=== PATIENT | male | born 1975 | race Caucasian/White ===

== ENCOUNTER 2024-07-19 01:55 | Outpatient (CLI) | payer MEDICAID, SELFPAY ==
[2024-07-19 11:00] LABS: Abs Immature Grans 0.05 10^3/uL (0.0-0.06); Absolute Basophil Count 0.08 10^3/uL (0.0-0.2); Absolute Eosinophil Count 0.13 10^3/uL (0.0-0.7); Absolute Lymphocyte Count 1.07 10^3/uL (1.2-3.4); Absolute Monocyte Count 0.64 10^3/uL (0.1-0.8); Absolute Neutrophil Count 6.21 10^3/uL (1.2-6.7); Eosinophils % 1.6 %; HCT 36.3 % (40.0-50.0); HGB 11.9 g/dL (13.5-17.5); Immature Grans % 0.6 %; Lymphocytes % 13.1 %; MCH 30.5 pg (27.0-33.0); MCHC 32.8 % (32.0-36.0); MCV 93 fL (80-95); MPV 8.3 fL (8.0-11.0); Monocytes % 7.8 %; Neutrophils % 75.9 %; Platelet Count 340 10^3/uL (130-400); RDW 12.4 % (11.8-14.1); RDW-SD 42.3 fL; WBC 8.18 10^3/uL (4.4-10.8)
[2024-07-19 11:24] LABS: ALT 13 U/L (16-63); AST 15 U/L (15-37); Albumin 2.9 g/dL (3.4-5.0); Alkaline Phosphatase 74 U/L (46-116); Anion Gap 1.3 mmol/L (3-11); BUN 7 mg/dL (7-18); Bilirubin, Total 0.33 mg/dL (0.2-1.0); CO2 31.7 mmol/L (21.0-32.0); CREATININE 0.8 mg/dL (0.70-1.30); Calcium 8.7 mg/dL (8.5-10.1); Chloride 99 mmol/L (98-107); Estimated GFR 109.85 (mL/min/1.73m2); FREE T4 0.82 ng/dL (0.76-1.46); Glucose 103 mg/dL (74-106); Potassium 4.7 mmol/L (3.5-5.1); Sodium 132 mmol/L (136-145); TSH 0.67 uIU/Ml (0.36-3.74); Total Protein 6.3 g/dL (6.4-8.2)
== END 2024-07-19 01:56 | disposition home or self-care (01) ==
LOC: LBO 01:55
PROVIDERS: Visit Provider Nurse Practitioner
DX: C44.42 Squamous cell carcinoma of skin of scalp and neck (principal)
CPT/HCPCS: 36415; 80053; 84439; 84443; 85025

== ENCOUNTER 2024-08-09 02:44 | Outpatient (RCR) | payer MEDICAID, SELFPAY ==
[2024-08-09 09:00] LABS: Abs Immature Grans 0.08 10^3/uL (0.0-0.06); Absolute Basophil Count 0.08 10^3/uL (0.0-0.2); Absolute Eosinophil Count 0.11 10^3/uL (0.0-0.7); Absolute Lymphocyte Count 1.29 10^3/uL (1.2-3.4); Absolute Monocyte Count 0.58 10^3/uL (0.1-0.8); Absolute Neutrophil Count 8.34 10^3/uL (1.2-6.7); Basophils % 0.8 %; HCT 36.5 % (40.0-50.0); HGB 12.4 g/dL (13.5-17.5); Immature Grans % 0.8 %; Lymphocytes % 12.3 %; MCH 30.2 pg (27.0-33.0); MCV 89 fL (80-95); MPV 9.1 fL (8.0-11.0); Monocytes % 5.5 %; Neutrophils % 79.6 %; Platelet Count 244 10^3/uL (130-400); RBC 4.11 10^6/uL (4.36-5.78); RDW 12.9 % (11.8-14.1); RDW-SD 40.8 fL; WBC 10.48 10^3/uL (4.4-10.8)
[2024-08-09] MEDS: Normal Saline Flush 10 ML SYR IVP (09:20)
[2024-08-09 09:27] LABS: ALT 10 U/L (16-63); AST 13 U/L (15-37); Albumin 3.1 g/dL (3.4-5.0); Alkaline Phosphatase 91 U/L (46-116); Anion Gap 10.4 mmol/L (3-11); BUN 5 mg/dL (7-18); Bilirubin, Total 0.44 mg/dL (0.2-1.0); CO2 26.6 mmol/L (21.0-32.0); CREATININE 0.7 mg/dL (0.70-1.30); Calcium 8.7 mg/dL (8.5-10.1); Chloride 98 mmol/L (98-107); Estimated GFR 114.37 (mL/min/1.73m2); FREE T4 0.95 ng/dL (0.76-1.46); Glucose 121 mg/dL (74-106); Sodium 135 mmol/L (136-145); TSH 1.01 uIU/Ml (0.36-3.74); Total Protein 6.8 g/dL (6.4-8.2)
== END 2024-08-09 23:59 | disposition home or self-care (01) ==
LOC: INF 02:44
PROVIDERS: Visit Provider Nurse Practitioner
DX: C44.42 Squamous cell carcinoma of skin of scalp and neck (principal)
CPT/HCPCS: 36591; 80053; 84439; 84443; 85025

== ENCOUNTER 2024-08-30 01:59 | Outpatient (RCR) | payer MEDICAID, SELFPAY ==
[2024-08-30] MEDS: Normal Saline Flush 10 ML SYR IVP (10:21)
[2024-08-30 10:22] LABS: Abs Immature Grans 0.03 10^3/uL (0.0-0.06); Absolute Basophil Count 0.07 10^3/uL (0.0-0.2); Absolute Eosinophil Count 0.36 10^3/uL (0.0-0.7); Absolute Lymphocyte Count 1.52 10^3/uL (1.2-3.4); Absolute Monocyte Count 0.58 10^3/uL (0.1-0.8); Basophils % 1.1 %; Eosinophils % 5.7 %; HCT 31.5 % (40.0-50.0); HGB 10.6 g/dL (13.5-17.5); Immature Grans % 0.5 %; Lymphocytes % 23.9 %; MCHC 33.7 % (32.0-36.0); MCV 92 fL (80-95); MPV 9.2 fL (8.0-11.0); Monocytes % 9.1 %; Neutrophils % 59.7 %; Platelet Count 300 10^3/uL (130-400); RBC 3.42 10^6/uL (4.36-5.78); RDW 15.7 % (11.8-14.1); RDW-SD 51.8 fL; WBC 6.36 10^3/uL (4.4-10.8)
[2024-08-30 10:49] LABS: ALT 13 U/L (16-63); AST 12 U/L (15-37); Albumin 3.1 g/dL (3.4-5.0); Alkaline Phosphatase 77 U/L (46-116); Anion Gap 6.5 mmol/L (3-11); BUN 4 mg/dL (7-18); Bilirubin, Total 0.35 mg/dL (0.2-1.0); CO2 28.5 mmol/L (21.0-32.0); CREATININE 0.8 mg/dL (0.70-1.30); Calcium 8.3 mg/dL (8.5-10.1); Chloride 103 mmol/L (98-107); Estimated GFR 109.85 (mL/min/1.73m2); FREE T4 1.03 ng/dL (0.76-1.46); Glucose 91 mg/dL (74-106); Potassium 4.3 mmol/L (3.5-5.1); Sodium 138 mmol/L (136-145); TSH 3.17 uIU/mL (0.36-3.74); Total Protein 6.5 g/dL (6.4-8.2)
== END 2024-09-09 23:59 | disposition home or self-care (01) ==
LOC: INF 01:59
PROVIDERS: Visit Provider Nurse Practitioner
DX: C44.42 Squamous cell carcinoma of skin of scalp and neck (principal); Z45.2 Encounter for adjustment and management of vascular access device
CPT/HCPCS: 36591; 80053; 84439; 84443; 85025

== ENCOUNTER 2024-12-06 02:13 | Outpatient (RCR) | payer MEDICAID, SELFPAY ==
[2024-11-15] MEDS: Normal Saline Flush 10 ML SYR IVP (13:04)
[2024-11-15 13:36] LABS: Abs Immature Grans 0.02 10^3/uL (0.0-0.06); Absolute Basophil Count 0.09 10^3/uL (0.0-0.2); Absolute Eosinophil Count 1.31 10^3/uL (0.0-0.7); Absolute Lymphocyte Count 1.76 10^3/uL (1.2-3.4); Absolute Monocyte Count 0.56 10^3/uL (0.1-0.8); Absolute Neutrophil Count 3.97 10^3/uL (1.2-6.7); Basophils % 1.2 %; HCT 45.9 % (40.0-50.0); Immature Grans % 0.3 %; Lymphocytes % 22.8 %; MCH 32.2 pg (27.0-33.0); MCHC 34.9 % (32.0-36.0); MCV 92 fL (80-95); MPV 9.4 fL (8.0-11.0); Monocytes % 7.3 %; Neutrophils % 51.4 %; Platelet Count 265 10^3/uL (130-400); RBC 4.97 10^6/uL (4.36-5.78); RDW 12.3 % (11.8-14.1); RDW-SD 41.6 fL; WBC 7.71 10^3/uL (4.4-10.8)
[2024-11-15 13:51] LABS: ALT 7 U/L (16-63); AST 17 U/L (15-37); Albumin 3.8 g/dL (3.4-5.0); Alkaline Phosphatase 114 U/L (46-116); Anion Gap 11.2 mmol/L (3-11); BUN 10 mg/dL (7-18); Bilirubin, Total 0.77 mg/dL (0.2-1.0); CO2 26.8 mmol/L (21.0-32.0); CREATININE 0.9 mg/dL (0.70-1.30); Calcium 8.7 mg/dL (8.5-10.1); Chloride 101 mmol/L (98-107); Estimated GFR 106.01 (mL/min/1.73m2); Glucose 62 mg/dL (74-106); Potassium 4.1 mmol/L (3.5-5.1); Sodium 139 mmol/L (136-145); Total Protein 7.5 g/dL (6.4-8.2)
[2024-11-29] MEDS: Normal Saline Flush 10 ML SYR IVP (09:24)
[2024-11-29 09:38] LABS: Abs Immature Grans 0.02 10^3/uL (0.0-0.06); Absolute Basophil Count 0.13 10^3/uL (0.0-0.2); Absolute Lymphocyte Count 1.92 10^3/uL (1.2-3.4); Absolute Monocyte Count 0.69 10^3/uL (0.1-0.8); Absolute Neutrophil Count 7.52 10^3/uL (1.2-6.7); Basophils % 1.1 %; Eosinophils % 9.7 %; HCT 49.2 % (40.0-50.0); HGB 16.6 g/dL (13.5-17.5); Immature Grans % 0.2 %; Lymphocytes % 16.9 %; MCH 31.3 pg (27.0-33.0); MCHC 33.7 % (32.0-36.0); MCV 93 fL (80-95); MPV 9.3 fL (8.0-11.0); Monocytes % 6.1 %; Platelet Count 297 10^3/uL (130-400); RDW 12.2 % (11.8-14.1); RDW-SD 42.4 fL; WBC 11.39 10^3/uL (4.4-10.8)
[2024-11-29 10:03] LABS: ALT 17 U/L (16-63); AST 16 U/L (15-37); Albumin 3.6 g/dL (3.4-5.0); Alkaline Phosphatase 102 U/L (46-116); Anion Gap 9.3 mmol/L (3-11); BUN 5 mg/dL (7-18); Bilirubin, Total 1.14 mg/dL (0.2-1.0); CO2 26.7 mmol/L (21.0-32.0); CREATININE 0.9 mg/dL (0.70-1.30); Calcium 8.2 mg/dL (8.5-10.1); Chloride 99 mmol/L (98-107); Estimated GFR 106.01 (mL/min/1.73m2); Glucose 113 mg/dL (74-106); Magnesium 1.4 mg/dL (1.8-2.4); Potassium 3.8 mmol/L (3.5-5.1); Sodium 135 mmol/L (136-145); Total Protein 7.6 g/dL (6.4-8.2)
[2024-12-06] MEDS: Normal Saline Flush 10 ML SYR IVP (11:36)
[2024-12-06 11:54] LABS: Abs Immature Grans 0.04 10^3/uL (0.0-0.06); Absolute Basophil Count 0.04 10^3/uL (0.0-0.2); Absolute Eosinophil Count 0.42 10^3/uL (0.0-0.7); Absolute Lymphocyte Count 1.32 10^3/uL (1.2-3.4); Absolute Monocyte Count 0.58 10^3/uL (0.1-0.8); Basophils % 0.5 %; Eosinophils % 5.7 %; HCT 44.8 % (40.0-50.0); HGB 15.8 g/dL (13.5-17.5); Immature Grans % 0.5 %; Lymphocytes % 17.8 %; MCH 31.7 pg (27.0-33.0); MCHC 35.3 % (32.0-36.0); MCV 90 fL (80-95); MPV 9.5 fL (8.0-11.0); Monocytes % 7.8 %; Neutrophils % 67.7 %; Platelet Count 263 10^3/uL (130-400); RBC 4.98 10^6/uL (4.36-5.78); RDW-SD 39.2 fL
[2024-12-06 12:23] LABS: ALT 20 U/L (16-63); AST 15 U/L (15-37); Albumin 3.5 g/dL (3.4-5.0); Alkaline Phosphatase 77 U/L (46-116); Anion Gap 8.8 mmol/L (3-11); BUN 5 mg/dL (7-18); CO2 28.2 mmol/L (21.0-32.0); CREATININE 0.8 mg/dL (0.70-1.30); Calcium 8.9 mg/dL (8.5-10.1); Chloride 97 mmol/L (98-107); Estimated GFR 109.85 (mL/min/1.73m2); Glucose 108 mg/dL (74-106); Potassium 3.8 mmol/L (3.5-5.1); Sodium 134 mmol/L (136-145); Total Protein 7.1 g/dL (6.4-8.2)
[2024-12-06 13:07] LABS: Magnesium 1.4 mg/dL (1.8-2.4)
== END 2024-12-10 23:59 | disposition home or self-care (01) ==
LOC: INF 02:13
PROVIDERS: Internal Medicine Hematology; Visit Provider Nurse Practitioner
DX: C44.42 Squamous cell carcinoma of skin of scalp and neck (principal)
CPT/HCPCS: 36591; 80053; 83735; 84439; 84443; 85025

== ENCOUNTER 2025-01-04 02:11 | Outpatient (RCR) | payer MEDICAID, SELFPAY ==
[2024-12-13 12:05] LABS: Abs Immature Grans 0.03 10^3/uL (0.0-0.06); Absolute Basophil Count 0.04 10^3/uL (0.0-0.2); Absolute Eosinophil Count 0.09 10^3/uL (0.0-0.7); Absolute Lymphocyte Count 0.65 10^3/uL (1.2-3.4); Absolute Monocyte Count 0.61 10^3/uL (0.1-0.8); Absolute Neutrophil Count 6.37 10^3/uL (1.2-6.7); Basophils % 0.5 %; Eosinophils % 1.2 %; HGB 14.1 g/dL (13.5-17.5); Immature Grans % 0.4 %; Lymphocytes % 8.3 %; MCH 31.5 pg (27.0-33.0); MCHC 34.4 % (32.0-36.0); MCV 92 fL (80-95); MPV 9.2 fL (8.0-11.0); Monocytes % 7.8 %; Neutrophils % 81.8 %; Platelet Count 189 10^3/uL (130-400); RBC 4.48 10^6/uL (4.36-5.78); RDW-SD 40.1 fL; WBC 7.79 10^3/uL (4.4-10.8)
[2024-12-13 12:23] LABS: ALT 22 U/L (16-63); AST 15 U/L (15-37); Albumin 3.3 g/dL (3.4-5.0); Alkaline Phosphatase 80 U/L (46-116); Anion Gap 6.3 mmol/L (3-11); BUN 6 mg/dL (7-18); Bilirubin, Total 0.55 mg/dL (0.2-1.0); CO2 27.7 mmol/L (21.0-32.0); CREATININE 0.7 mg/dL (0.70-1.30); Calcium 8.9 mg/dL (8.5-10.1); Chloride 96 mmol/L (98-107); Estimated GFR 114.37 (mL/min/1.73m2); Glucose 100 mg/dL (74-106); Magnesium 1.3 mg/dL (1.8-2.4); Potassium 4.5 mmol/L (3.5-5.1); Sodium 130 mmol/L (136-145); Total Protein 6.7 g/dL (6.4-8.2)
[2024-12-13] MEDS: Normal Saline Flush 10 ML SYR IVP (13:27)
[2024-12-20] MEDS: Normal Saline Flush 10 ML SYR IVP (10:51)
[2024-12-20 11:10] LABS: Abs Immature Grans 0.05 10^3/uL (0.0-0.06); Absolute Basophil Count 0.03 10^3/uL (0.0-0.2); Absolute Lymphocyte Count 0.39 10^3/uL (1.2-3.4); Absolute Monocyte Count 0.66 10^3/uL (0.1-0.8); Absolute Neutrophil Count 3.66 10^3/uL (1.2-6.7); Basophils % 0.6 %; HCT 37.7 % (40.0-50.0); HGB 12.7 g/dL (13.5-17.5); MCH 30.9 pg (27.0-33.0); MCHC 33.7 % (32.0-36.0); MCV 92 fL (80-95); MPV 8.9 fL (8.0-11.0); Monocytes % 13.5 %; Neutrophils % 74.9 %; Platelet Count 192 10^3/uL (130-400); RBC 4.11 10^6/uL (4.36-5.78); RDW 12.3 % (11.8-14.1); RDW-SD 40.9 fL; WBC 4.89 10^3/uL (4.4-10.8)
[2024-12-20 11:25] LABS: ALT 12 U/L (16-63); AST 9 U/L (15-37); Albumin 3.1 g/dL (3.4-5.0); Alkaline Phosphatase 70 U/L (46-116); Anion Gap 7.3 mmol/L (3-11); BUN 6 mg/dL (7-18); Bilirubin, Total 0.33 mg/dL (0.2-1.0); CO2 29.7 mmol/L (21.0-32.0); CREATININE 0.9 mg/dL (0.70-1.30); Chloride 95 mmol/L (98-107); Estimated GFR 106.01 (mL/min/1.73m2); Glucose 132 mg/dL (74-106); Magnesium 1.3 mg/dL (1.8-2.4); Sodium 132 mmol/L (136-145); Total Protein 6.9 g/dL (6.4-8.2)
[2024-12-28 12:37] LABS: Abs Immature Grans 0.01 10^3/uL (0.0-0.06); Absolute Basophil Count 0.04 10^3/uL (0.0-0.2); Absolute Eosinophil Count 0.03 10^3/uL (0.0-0.7); Absolute Lymphocyte Count 0.41 10^3/uL (1.2-3.4); Absolute Monocyte Count 0.51 10^3/uL (0.1-0.8); Absolute Neutrophil Count 4.06 10^3/uL (1.2-6.7); Basophils % 0.8 %; Eosinophils % 0.6 %; HCT 35.4 % (40.0-50.0); HGB 12.4 g/dL (13.5-17.5); Immature Grans % 0.2 %; Lymphocytes % 8.1 %; MCH 31.4 pg (27.0-33.0); MCV 90 fL (80-95); MPV 8.9 fL (8.0-11.0); Monocytes % 10.1 %; Neutrophils % 80.2 %; Platelet Count 236 10^3/uL (130-400); RBC 3.95 10^6/uL (4.36-5.78); RDW 12.3 % (11.8-14.1); RDW-SD 40.1 fL; WBC 5.06 10^3/uL (4.4-10.8)
[2024-12-28 12:51] LABS: ALT 20 U/L (16-63); AST 12 U/L (15-37); Albumin 3.3 g/dL (3.4-5.0); Alkaline Phosphatase 75 U/L (46-116); Anion Gap 5.1 mmol/L (3-11); BUN 12 mg/dL (7-18); Bilirubin, Total 0.27 mg/dL (0.2-1.0); CO2 28.9 mmol/L (21.0-32.0); CREATININE 0.8 mg/dL (0.70-1.30); Chloride 99 mmol/L (98-107); Estimated GFR 109.85 (mL/min/1.73m2); Glucose 109 mg/dL (74-106); Magnesium 1.6 mg/dL (1.8-2.4); Potassium 4.2 mmol/L (3.5-5.1); Sodium 133 mmol/L (136-145); Total Protein 6.8 g/dL (6.4-8.2)
[2024-12-28] MEDS: Normal Saline Flush 10 ML SYR IVP (13:24)
[2025-01-04] MEDS: Normal Saline Flush 10 ML SYR IVP (10:50)
[2025-01-04 11:01] LABS: Abs Immature Grans 0.03 10^3/uL (0.0-0.06); Absolute Basophil Count 0.02 10^3/uL (0.0-0.2); Absolute Eosinophil Count 0.01 10^3/uL (0.0-0.7); Absolute Lymphocyte Count 0.38 10^3/uL (1.2-3.4); Absolute Monocyte Count 0.59 10^3/uL (0.1-0.8); Basophils % 0.4 %; Eosinophils % 0.2 %; HCT 35.6 % (40.0-50.0); Immature Grans % 0.7 %; Lymphocytes % 8.4 %; MCH 31.1 pg (27.0-33.0); MCHC 33.7 % (32.0-36.0); MCV 92 fL (80-95); Neutrophils % 77.3 %; Platelet Count 245 10^3/uL (130-400); RBC 3.86 10^6/uL (4.36-5.78); RDW-SD 42.9 fL; WBC 4.53 10^3/uL (4.4-10.8)
[2025-01-04 11:15] LABS: ALT 18 U/L (16-63); AST 15 U/L (15-37); Albumin 3.4 g/dL (3.4-5.0); Alkaline Phosphatase 76 U/L (46-116); Anion Gap 5.2 mmol/L (3-11); BUN 6 mg/dL (7-18); Bilirubin, Total 0.38 mg/dL (0.2-1.0); CO2 28.8 mmol/L (21.0-32.0); CREATININE 0.7 mg/dL (0.70-1.30); Calcium 9.2 mg/dL (8.5-10.1); Chloride 99 mmol/L (98-107); Estimated GFR 114.37 (mL/min/1.73m2); Glucose 106 mg/dL (74-106); Magnesium 1.4 mg/dL (1.8-2.4); Potassium 4.2 mmol/L (3.5-5.1); Sodium 133 mmol/L (136-145); Total Protein 7.1 g/dL (6.4-8.2)
== END 2025-01-07 23:59 | disposition home or self-care (01) ==
LOC: INF 02:11
PROVIDERS: Internal Medicine Hematology; Visit Provider Nurse Practitioner
DX: C44.42 Squamous cell carcinoma of skin of scalp and neck (principal)
CPT/HCPCS: 36591; 80053; 83735; 85025

== ENCOUNTER 2025-02-07 01:35 | Outpatient (RCR) | payer MEDICAID, SELFPAY ==
[2025-01-10] MEDS: Normal Saline Flush 10 ML SYR IVP (14:08)
[2025-01-10 14:17] LABS: Abs Immature Grans 0.03 10^3/uL (0.0-0.06); Absolute Basophil Count 0.02 10^3/uL (0.0-0.2); Absolute Eosinophil Count 0.02 10^3/uL (0.0-0.7); Absolute Neutrophil Count 4.98 10^3/uL (1.2-6.7); Basophils % 0.3 %; Eosinophils % 0.3 %; HCT 34.5 % (40.0-50.0); HGB 11.9 g/dL (13.5-17.5); Immature Grans % 0.5 %; MCH 31.3 pg (27.0-33.0); MCHC 34.5 % (32.0-36.0); MCV 91 fL (80-95); MPV 8.9 fL (8.0-11.0); Monocytes % 11.2 %; Neutrophils % 79.7 %; Platelet Count 209 10^3/uL (130-400); RDW 13.1 % (11.8-14.1); RDW-SD 42.2 fL; WBC 6.25 10^3/uL (4.4-10.8)
[2025-01-10 14:32] LABS: ALT 30 U/L (16-63); AST 17 U/L (15-37); Albumin 3.5 g/dL (3.4-5.0); Alkaline Phosphatase 83 U/L (46-116); Anion Gap 5.5 mmol/L (3-11); BUN 15 mg/dL (7-18); Bilirubin, Total 0.29 mg/dL (0.2-1.0); CO2 30.5 mmol/L (21.0-32.0); CREATININE 0.9 mg/dL (0.70-1.30); Calcium 9.1 mg/dL (8.5-10.1); Chloride 100 mmol/L (98-107); Estimated GFR 106.01 (mL/min/1.73m2); Glucose 111 mg/dL (74-106); Magnesium 1.5 mg/dL (1.8-2.4); Potassium 3.9 mmol/L (3.5-5.1); Sodium 136 mmol/L (136-145); Total Protein 6.8 g/dL (6.4-8.2)
[2025-01-18 10:16] LABS: Abs Immature Grans 0.01 10^3/uL (0.0-0.06); Absolute Basophil Count 0.03 10^3/uL (0.0-0.2); Absolute Eosinophil Count 0.06 10^3/uL (0.0-0.7); Absolute Lymphocyte Count 0.32 10^3/uL (1.2-3.4); Absolute Monocyte Count 0.48 10^3/uL (0.1-0.8); Absolute Neutrophil Count 3.04 10^3/uL (1.2-6.7); Basophils % 0.8 %; Eosinophils % 1.5 %; HCT 32.2 % (40.0-50.0); Immature Grans % 0.3 %; Lymphocytes % 8.1 %; MCH 31.5 pg (27.0-33.0); MCHC 34.2 % (32.0-36.0); MCV 92 fL (80-95); MPV 9.1 fL (8.0-11.0); Monocytes % 12.2 %; Neutrophils % 77.1 %; Platelet Count 153 10^3/uL (130-400); RBC 3.49 10^6/uL (4.36-5.78); RDW 14.2 % (11.8-14.1); RDW-SD 46.5 fL; WBC 3.94 10^3/uL (4.4-10.8)
[2025-01-18 10:44] LABS: ALT 13 U/L (16-63); AST 9 U/L (15-37); Albumin 3.4 g/dL (3.4-5.0); Alkaline Phosphatase 78 U/L (46-116); Anion Gap 11.6 mmol/L (3-11); BUN 8 mg/dL (7-18); Bilirubin, Total 0.3 mg/dL (0.2-1.0); CO2 24.4 mmol/L (21.0-32.0); CREATININE 0.7 mg/dL (0.70-1.30); Calcium 9.1 mg/dL (8.5-10.1); Chloride 99 mmol/L (98-107); Estimated GFR 113.66 (mL/min/1.73m2); Glucose 94 mg/dL (74-106); Magnesium 1.2 mg/dL; Potassium 3.7 mmol/L (3.5-5.1); Sodium 135 mmol/L (136-145); Total Protein 6.9 g/dL (6.4-8.2)
[2025-01-18] MEDS: Normal Saline Flush 10 ML SYR IVP (11:52)
[2025-02-07] MEDS: Normal Saline Flush 10 ML SYR IVP (13:24)
[2025-02-07 13:39] LABS: Abs Immature Grans 0.02 10^3/uL (0.0-0.06); Absolute Basophil Count 0.04 10^3/uL (0.0-0.2); Absolute Lymphocyte Count 0.25 10^3/uL (1.2-3.4); Absolute Monocyte Count 0.77 10^3/uL (0.1-0.8); Absolute Neutrophil Count 5.29 10^3/uL (1.2-6.7); Basophils % 0.6 %; Eosinophils % 1.5 %; HCT 29.6 % (40.0-50.0); HGB 10.1 g/dL (13.5-17.5); Immature Grans % 0.3 %; Lymphocytes % 3.9 %; MCH 33.3 pg (27.0-33.0); MCHC 34.1 % (32.0-36.0); MCV 98 fL (80-95); Monocytes % 11.9 %; Neutrophils % 81.8 %; Platelet Count 347 10^3/uL (130-400); RBC 3.03 10^6/uL (4.36-5.78); RDW 16.5 % (11.8-14.1); RDW-SD 58.6 fL; WBC 6.47 10^3/uL (4.4-10.8)
[2025-02-07 13:59] LABS: ALT 13 U/L (16-63); AST 9 U/L (15-37); Albumin 3.3 g/dL (3.4-5.0); Alkaline Phosphatase 80 U/L (46-116); Anion Gap 10.7 mmol/L (3-11); BUN 7 mg/dL (7-18); Bilirubin, Total 0.6 mg/dL (0.2-1.0); CO2 29.3 mmol/L (21.0-32.0); CREATININE 0.8 mg/dL (0.70-1.30); Calcium 9.3 mg/dL (8.5-10.1); Chloride 95 mmol/L (98-107); Estimated GFR 109.17 (mL/min/1.73m2); Glucose 109 mg/dL (74-106); Magnesium 1.5 mg/dL; Potassium 3.7 mmol/L (3.5-5.1); Sodium 135 mmol/L (136-145); Total Protein 6.9 g/dL (6.4-8.2)
== END 2025-02-07 23:59 | disposition home or self-care (01) ==
LOC: INF 01:35
PROVIDERS: Internal Medicine Hematology; Visit Provider Nurse Practitioner
DX: C44.42 Squamous cell carcinoma of skin of scalp and neck (principal)
CPT/HCPCS: 36591; 80053; 83735; 85025

== ENCOUNTER 2025-03-28 03:01 | Outpatient (RCR) | payer MEDICAID, SELFPAY ==
[2025-03-14] MEDS: Normal Saline Flush 10 ML SYR IVP (09:49)
[2025-03-14 10:12] LABS: Abs Immature Grans 0.07 10^3/uL (0.0-0.06); Absolute Basophil Count 0.06 10^3/uL (0.0-0.2); Absolute Eosinophil Count 0.63 10^3/uL (0.0-0.7); Absolute Lymphocyte Count 0.75 10^3/uL (1.2-3.4); Basophils % 0.5 %; Eosinophils % 5.2 %; HCT 39.2 % (40.0-50.0); HGB 13.5 g/dL (13.5-17.5); Immature Grans % 0.6 %; Lymphocytes % 6.2 %; MCH 35.2 pg (27.0-33.0); MCHC 34.4 % (32.0-36.0); MCV 102 fL (80-95); MPV 8.8 fL (8.0-11.0); Monocytes % 6.6 %; Neutrophils % 80.9 %; Platelet Count 313 10^3/uL (130-400); RBC 3.83 10^6/uL (4.36-5.78); RDW 12.8 % (11.8-14.1); RDW-SD 48.6 fL; WBC 12.13 10^3/uL (4.4-10.8)
[2025-03-14 10:14] LABS: Absolute Neutrophil Count 9.81 10^3/uL (1.2-6.7)
[2025-03-14 10:33] LABS: ALT 10 U/L (16-63); AST 11 U/L (15-37); Albumin 3.8 g/dL (3.4-5.0); Alkaline Phosphatase 96 U/L (46-116); Anion Gap 10.4 mmol/L (3-11); BUN 8 mg/dL (7-18); Bilirubin, Total 0.5 mg/dL (0.2-1.0); CO2 27.6 mmol/L (21.0-32.0); CREATININE 0.7 mg/dL (0.70-1.30); Calcium 9.6 mg/dL (8.5-10.1); Chloride 98 mmol/L (98-107); Estimated GFR 113.66 (mL/min/1.73m2); Glucose 99 mg/dL (74-106); Magnesium 1.1 mg/dL (1.8-2.4); Potassium 3.9 mmol/L (3.5-5.1); Sodium 136 mmol/L (136-145); Total Protein 7.3 g/dL (6.4-8.2)
== END 2025-04-09 23:59 | disposition home or self-care (01) ==
LOC: INF 03:01
PROVIDERS: Internal Medicine Hematology; Visit Provider Nurse Practitioner
DX: C44.42 Squamous cell carcinoma of skin of scalp and neck (principal); Z45.2 Encounter for adjustment and management of vascular access device
CPT/HCPCS: 36591; 80053; 83735; 85025

== ENCOUNTER 2025-05-02 12:00 | Outpatient (RCR) | payer MEDICAID, SELFPAY ==
[2025-04-18 10:31] LABS: Abs Immature Grans 0.03 10^3/uL (0.0-0.06); Absolute Basophil Count 0.06 10^3/uL (0.0-0.2); Absolute Eosinophil Count 0.32 10^3/uL (0.0-0.7); Absolute Lymphocyte Count 0.63 10^3/uL (1.2-3.4); Absolute Monocyte Count 0.59 10^3/uL (0.1-0.8); Absolute Neutrophil Count 6.86 10^3/uL (1.2-6.7); Basophils % 0.7 %; Eosinophils % 3.8 %; HCT 41.1 % (40.0-50.0); HGB 14.4 g/dL (13.5-17.5); Immature Grans % 0.4 %; Lymphocytes % 7.4 %; MCH 33.7 pg (27.0-33.0); MCV 96 fL (80-95); MPV 8.5 fL (8.0-11.0); Monocytes % 6.9 %; Neutrophils % 80.8 %; Platelet Count 275 10^3/uL (130-400); RBC 4.27 10^6/uL (4.36-5.78); RDW 11.8 % (11.8-14.1); WBC 8.49 10^3/uL (4.4-10.8)
[2025-04-18] MEDS: Normal Saline Flush 10 ML SYR IVP (10:42)
[2025-04-18 10:49] LABS: ALT 8 U/L (16-63); AST 11 U/L (15-37); Albumin 3.7 g/dL (3.4-5.0); Alkaline Phosphatase 105 U/L (46-116); Anion Gap 7.9 mmol/L (3-11); BUN 8 mg/dL (7-18); CO2 28.1 mmol/L (21.0-32.0); CREATININE 0.6 mg/dL (0.70-1.30); Calcium 9.2 mg/dL (8.5-10.1); Chloride 96 mmol/L (98-107); Estimated GFR 119.07 (mL/min/1.73m2); Glucose 90 mg/dL (74-106); Magnesium 1.2 mg/dL (1.8-2.4); Sodium 132 mmol/L (136-145); Total Protein 7.2 g/dL (6.4-8.2)
[2025-05-02] MEDS: Normal Saline Flush 10 ML SYR IVP (12:46)
[2025-05-02 13:02] LABS: Abs Immature Grans 0.07 10^3/uL (0.0-0.06); Absolute Basophil Count 0.06 10^3/uL (0.0-0.2); Absolute Lymphocyte Count 0.83 10^3/uL (1.2-3.4); Absolute Neutrophil Count 10.23 10^3/uL (1.2-6.7); Basophils % 0.5 %; Eosinophils % 1.6 %; HCT 39.9 % (40.0-50.0); HGB 13.8 g/dL (13.5-17.5); Immature Grans % 0.6 %; Lymphocytes % 6.8 %; MCHC 34.6 % (32.0-36.0); MCV 96 fL (80-95); MPV 8.6 fL (8.0-11.0); Monocytes % 6.6 %; Neutrophils % 83.9 %; Platelet Count 263 10^3/uL (130-400); RBC 4.18 10^6/uL (4.36-5.78); RDW 11.5 % (11.8-14.1); RDW-SD 39.9 fL; WBC 12.19 10^3/uL (4.4-10.8)
[2025-05-02 13:22] LABS: ALT 11 U/L (16-63); AST 10 U/L (15-37); Albumin 3.6 g/dL (3.4-5.0); Alkaline Phosphatase 96 U/L (46-116); Anion Gap 10.6 mmol/L (3-11); BUN 7 mg/dL (7-18); Bilirubin, Total 0.8 mg/dL (0.2-1.0); CO2 27.4 mmol/L (21.0-32.0); CREATININE 0.6 mg/dL (0.70-1.30); Chloride 94 mmol/L (98-107); Estimated GFR 119.07 (mL/min/1.73m2); Glucose 107 mg/dL (74-106); Magnesium 1.3 mg/dL (1.8-2.4); Potassium 3.9 mmol/L (3.5-5.1); Sodium 132 mmol/L (136-145); Total Protein 6.9 g/dL (6.4-8.2)
== END 2025-05-09 23:59 | disposition home or self-care (01) ==
LOC: INF 12:00
PROVIDERS: Internal Medicine Hematology; Visit Provider Nurse Practitioner
DX: C44.42 Squamous cell carcinoma of skin of scalp and neck (principal); Z45.2 Encounter for adjustment and management of vascular access device
CPT/HCPCS: 36591; 80053; 83735; 85025

== ENCOUNTER 2025-05-23 11:32 | Outpatient (RCR) | payer MEDICAID, SELFPAY ==
[2025-05-23] MEDS: Normal Saline Flush 10 ML SYR IVP (11:41)
[2025-05-23 11:51] LABS: Abs Immature Grans 0.03 10^3/uL (0.0-0.06); HCT 40.8 % (40.0-50.0); HGB 14.1 g/dL (13.5-17.5); Immature Grans % 0.4 %; MCH 32.5 pg (27.0-33.0); MCHC 34.6 % (32.0-36.0); MCV 94 fL (80-95); MPV 8.9 fL (8.0-11.0); Platelet Count 301 10^3/uL (130-400); RBC 4.34 10^6/uL (4.36-5.78); RDW 11.8 % (11.8-14.1); RDW-SD 40.8 fL; WBC 8.55 10^3/uL (4.4-10.8)
[2025-05-23 12:28] LABS: ALT 11 U/L (16-63); AST 14 U/L (15-37); Albumin 3.8 g/dL (3.4-5.0); Alkaline Phosphatase 88 U/L (46-116); Anion Gap 11.2 mmol/L (3-11); BUN 9 mg/dL (7-18); Bilirubin, Total 0.8 mg/dL (0.2-1.0); CO2 25.8 mmol/L (21.0-32.0); Calcium 9.3 mg/dL (8.5-10.1); Chloride 96 mmol/L (98-107); Estimated GFR 113.66 (mL/min/1.73m2); Glucose 113 mg/dL (74-106); Magnesium 1.6 mg/dL (1.8-2.4); Potassium 3.7 mmol/L (3.5-5.1); Sodium 133 mmol/L (136-145); Total Protein 7.4 g/dL (6.4-8.2)
== END 2025-06-09 23:59 | disposition home or self-care (01) ==
LOC: INF 11:32
PROVIDERS: Internal Medicine Hematology; Visit Provider Nurse Practitioner
DX: C44.42 Squamous cell carcinoma of skin of scalp and neck (principal); Z45.2 Encounter for adjustment and management of vascular access device
CPT/HCPCS: 36591; 80053; 83735; 85025

== ENCOUNTER 2025-07-04 14:00 | Outpatient (RCR) | payer MEDICAID, SELFPAY ==
[2025-06-13] MEDS: Normal Saline Flush 10 ML SYR IVP (13:39)
[2025-06-13 13:56] LABS: Abs Immature Grans 0.04 10^3/uL (0.0-0.06); HCT 40.8 % (40.0-50.0); HGB 14.1 g/dL (13.5-17.5); Immature Grans % 0.4 %; MCH 32.1 pg (27.0-33.0); MCHC 34.6 % (32.0-36.0); MCV 93 fL (80-95); MPV 8.9 fL (8.0-11.0); Platelet Count 348 10^3/uL (130-400); RBC 4.39 10^6/uL (4.36-5.78); RDW 11.9 % (11.8-14.1); RDW-SD 41.0 fL; WBC 9.60 10^3/uL (4.4-10.8)
[2025-06-13 14:26] LABS: ALT 13 U/L (16-63); AST 12 U/L (15-37); Albumin 3.8 g/dL (3.4-5.0); Alkaline Phosphatase 86 U/L (46-116); Anion Gap 6.1 mmol/L (3-11); BUN 9 mg/dL (7-18); Bilirubin, Total 0.7 mg/dL (0.2-1.0); CO2 29.9 mmol/L (21.0-32.0); Calcium 9.4 mg/dL (8.5-10.1); Chloride 98 mmol/L (98-107); Estimated GFR 113.66 (mL/min/1.73m2); Glucose 116 mg/dL (74-106); Magnesium 1.4 mg/dL (1.8-2.4); Potassium 3.9 mmol/L (3.5-5.1); Sodium 134 mmol/L (136-145); Total Protein 7.2 g/dL (6.4-8.2)
[2025-07-04 14:53] LABS: Abs Immature Grans 0.04 10^3/uL (0.0-0.06); HCT 39.9 % (40.0-50.0); HGB 13.5 g/dL (13.5-17.5); Immature Grans % 0.4 %; MCH 30.9 pg (27.0-33.0); MCHC 33.8 % (32.0-36.0); MCV 91 fL (80-95); MPV 9.2 fL (8.0-11.0); Platelet Count 296 10^3/uL (130-400); RBC 4.37 10^6/uL (4.36-5.78); RDW 11.6 % (11.8-14.1); RDW-SD 39.1 fL; WBC 8.94 10^3/uL (4.4-10.8)
[2025-07-04] MEDS: Normal Saline Flush 10 ML SYR IVP (14:56)
[2025-07-04 15:15] LABS: ALT 11 U/L (16-63); AST 12 U/L (15-37); Albumin 3.9 g/dL (3.4-5.0); Alkaline Phosphatase 64 U/L (46-116); Anion Gap 10.4 mmol/L (3-11); BUN 11 mg/dL (7-18); Bilirubin, Total 0.5 mg/dL (0.2-1.0); CO2 27.6 mmol/L (21.0-32.0); Calcium 9.4 mg/dL (8.5-10.1); Chloride 99 mmol/L (98-107); Estimated GFR 109.17 (mL/min/1.73m2); Glucose 71 mg/dL (74-106); Magnesium 1.6 mg/dL (1.8-2.4); Potassium 3.9 mmol/L (3.5-5.1); Sodium 137 mmol/L (136-145); Total Protein 7.1 g/dL (6.4-8.2)
== END 2025-07-10 23:59 | disposition home or self-care (01) ==
LOC: INF 14:00
PROVIDERS: Internal Medicine Hematology; Visit Provider Nurse Practitioner
DX: Z45.2 Encounter for adjustment and management of vascular access device (principal); C44.42 Squamous cell carcinoma of skin of scalp and neck
CPT/HCPCS: 36591; 80053; 83735; 85025

== ENCOUNTER 2025-08-01 13:30 | Outpatient (RCR) | payer MEDICAID, SELFPAY ==
[2025-08-01 14:28] LABS: Abs Immature Grans 0.09 10^3/uL (0.0-0.06); HCT 40.2 % (40.0-50.0); HGB 13.6 g/dL (13.5-17.5); Immature Grans % 0.8 %; MCH 30.2 pg (27.0-33.0); MCHC 33.8 % (32.0-36.0); MCV 89 fL (80-95); MPV 8.4 fL (8.0-11.0); Platelet Count 357 10^3/uL (130-400); RBC 4.50 10^6/uL (4.36-5.78); RDW 12.4 % (11.8-14.1); RDW-SD 40.0 fL; WBC 11.69 10^3/uL (4.4-10.8)
[2025-08-01 14:51] LABS: ALT 9 U/L (16-63); AST 8 U/L (15-37); Albumin 3.4 g/dL (3.4-5.0); Alkaline Phosphatase 81 U/L (46-116); Anion Gap 8.3 mmol/L (3-11); BUN 6 mg/dL (7-18); Bilirubin, Total 0.3 mg/dL (0.2-1.0); CO2 26.7 mmol/L (21.0-32.0); Calcium 9.0 mg/dL (8.5-10.1); Chloride 97 mmol/L (98-107); Glucose 101 mg/dL (74-106); Magnesium 1.4 mg/dL (1.8-2.4); Potassium 3.7 mmol/L (3.5-5.1); Sodium 132 mmol/L (136-145); Total Protein 7.2 g/dL (6.4-8.2)
[2025-08-01] MEDS: Normal Saline Flush 10 ML SYR IVP (15:11)
== END 2025-08-09 23:59 | disposition home or self-care (01) ==
LOC: INF 13:30
PROVIDERS: Internal Medicine Hematology; Visit Provider Nurse Practitioner
DX: C44.42 Squamous cell carcinoma of skin of scalp and neck (principal); Z45.2 Encounter for adjustment and management of vascular access device
CPT/HCPCS: 36591; 80053; 83735; 85025

== ENCOUNTER 2025-08-29 03:24 | Outpatient (RCR) | payer MEDICAID, SELFPAY ==
[2025-08-15] MEDS: Normal Saline Flush 10 ML SYR IVP (11:28)
[2025-08-15 11:35] LABS: Abs Immature Grans 0.04 10^3/uL (0.0-0.06); HCT 40.9 % (40.0-50.0); HGB 13.9 g/dL (13.5-17.5); Immature Grans % 0.4 %; MCH 29.8 pg (27.0-33.0); MCHC 34.0 % (32.0-36.0); MCV 88 fL (80-95); MPV 8.3 fL (8.0-11.0); Platelet Count 427 10^3/uL (130-400); RBC 4.67 10^6/uL (4.36-5.78); RDW 12.1 % (11.8-14.1); RDW-SD 38.8 fL; WBC 10.58 10^3/uL (4.4-10.8)
[2025-08-15 11:55] LABS: ALT 8 U/L (16-63); AST 8 U/L (15-37); Albumin 3.3 g/dL (3.4-5.0); Alkaline Phosphatase 91 U/L (46-116); Anion Gap 9.5 mmol/L (3-11); BUN 6 mg/dL (7-18); Bilirubin, Total 0.3 mg/dL (0.2-1.0); CO2 27.5 mmol/L (21.0-32.0); Calcium 9.1 mg/dL (8.5-10.1); Chloride 95 mmol/L (98-107); Glucose 113 mg/dL (74-106); Magnesium 1.5 mg/dL (1.8-2.4); Potassium 3.6 mmol/L (3.5-5.1); Sodium 132 mmol/L (136-145); Total Protein 7.4 g/dL (6.4-8.2)
[2025-08-22] MEDS: Normal Saline Flush 10 ML SYR IVP (09:38)
[2025-08-22 10:07] LABS: Abs Immature Grans 0.06 10^3/uL (0.0-0.06); HCT 42.5 % (40.0-50.0); HGB 14.4 g/dL (13.5-17.5); Immature Grans % 0.5 %; MCH 30.0 pg (27.0-33.0); MCHC 33.9 % (32.0-36.0); MCV 89 fL (80-95); MPV 8.8 fL (8.0-11.0); Platelet Count 447 10^3/uL (130-400); RBC 4.80 10^6/uL (4.36-5.78); RDW 12.2 % (11.8-14.1); RDW-SD 40.0 fL; WBC 11.98 10^3/uL (4.4-10.8)
[2025-08-22 10:12] LABS: ALT 9 U/L (16-63); AST 8 U/L (15-37); Albumin 3.3 g/dL (3.4-5.0); Alkaline Phosphatase 90 U/L (46-116); Anion Gap 14.1 mmol/L (3-11); BUN 7 mg/dL (7-18); Bilirubin, Total 0.8 mg/dL (0.2-1.0); CO2 25.9 mmol/L (21.0-32.0); Calcium 9.2 mg/dL (8.5-10.1); Chloride 95 mmol/L (98-107); Glucose 119 mg/dL (74-106); Magnesium 1.4 mg/dL (1.8-2.4); Potassium 3.5 mmol/L (3.5-5.1); Sodium 135 mmol/L (136-145); Total Protein 7.4 g/dL (6.4-8.2)
[2025-08-29] MEDS: Normal Saline Flush 10 ML SYR IVP (11:40)
[2025-08-29 11:47] LABS: Abs Immature Grans 0.05 10^3/uL (0.0-0.06); HCT 37.6 % (40.0-50.0); HGB 12.8 g/dL (13.5-17.5); Immature Grans % 0.4 %; MCH 29.0 pg (27.0-33.0); MCHC 34.0 % (32.0-36.0); MCV 85 fL (80-95); MPV 8.7 fL (8.0-11.0); Platelet Count 407 10^3/uL (130-400); RBC 4.41 10^6/uL (4.36-5.78); RDW 11.9 % (11.8-14.1); RDW-SD 37.1 fL; WBC 11.20 10^3/uL (4.4-10.8)
[2025-08-29 12:11] LABS: ALT 6 U/L (16-63); AST 10 U/L (15-37); Albumin 2.9 g/dL (3.4-5.0); Alkaline Phosphatase 73 U/L (46-116); Anion Gap 10.3 mmol/L (3-11); BUN 6 mg/dL (7-18); Bilirubin, Total 0.4 mg/dL (0.2-1.0); CO2 28.7 mmol/L (21.0-32.0); Calcium 9.0 mg/dL (8.5-10.1); Chloride 93 mmol/L (98-107); Glucose 119 mg/dL (74-106); Magnesium 1.4 mg/dL (1.8-2.4); Potassium 3.0 mmol/L (3.5-5.1); Sodium 132 mmol/L (136-145); Total Protein 7.1 g/dL (6.4-8.2)
== END 2025-09-09 23:59 | disposition home or self-care (01) ==
LOC: INF 03:24
PROVIDERS: Nurse Practitioner; Visit Provider Internal Medicine Hematology
DX: C44.42 Squamous cell carcinoma of skin of scalp and neck (principal); Z45.2 Encounter for adjustment and management of vascular access device
CPT/HCPCS: 36591; 80053; 83735; 85025

== ENCOUNTER 2025-09-12 13:34 | Emergency (ER) | payer MEDICAID, SELFPAY ==
--- NOTE | 2025-09-12 13:30 | RT.EKG_ITS ---
APPROVED REPORT Exam: Resting ECG Reason for Exam: AFIB Patient Location: E HR:111 bpm ECG Measurements Heart Rate 111 AXIS ME 171 P 75 QRSd 75 QRS -1 QT 315 T 69 QTc 429 Conclusion Sinus tachycardia...rate> 99 Right atrial enlargement...P>0.25mV 2 lds or<-0.24mV aVR/aVL Consider anteroseptal infarct...Q >30mS, dimin R, V1-V2 No Occlusion IA
[2025-09-12 13:35] VITALS: BP 169/96; PULSE 110; RESP 20; TEMP 36.6; O2SAT 95
[2025-09-12] MEDS: Normal Saline 1,000 ML 1000 ML IV (14:29)
--- NOTE | 2025-09-12 14:36 | ED.GENADUL_ITS ---
Discharge Plan Disposition Patient Disposition: Home Discharge Details Clinical Impression: Hypomagnesemia, Tachycardia Primary Care Provider: Unknown,Unknown ED Provider: Cynthia Brown Discharge Instructions Instructions: Sinus Tachycardia (DC), Hypomagnesemia Additional Instructions: Increase the magnesium you are taking to 4 drops a day and have your magnesium rechecked next week Your heart rate was elevated on arrival, you might benefit from an outpatient Holter monitor or Zio patch, please work on establishing with a primary care doctor Your thyroid is also slightly elevated, this will need follow-up Please be reevaluated should you develop shortness of breath, fever, or with any new or worsening complaints Stand Alone Forms: Portal Information Discharge Data Discharge Date/Time-TO BE ENTERED AT DEPARTURE: 09/12/25 17:03 HPI General Date/Time Provider Initiated Documentation: 09/12/25 13:40 . HPI Narrative: This 50-year-old male presents with report of possible atrial fibrillation sent in from [facility]. It sounds like he was presenting to [facility] for immunotherapy secondary to recurrence of his cancer. 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 On arrival there there was concern that patient reportedly was having an irregularly regular rhythm and was sent here for fu rther assessment. Patient states he otherwise feels quite well. He denies any chest pain, shortness of breath, or palpitations. Denies any history of atrial fibrillation. He does not currently have a primary care doctor scheduled for a PEG tube placement at [facility] in the next 2 weeks as he has had intermittent difficulty swallowing secondary to the radiation he received. He denies any complaints at this time otherwise feels quite well per patient. General Stated Complaint: Palpitatns MEGAN: 2 Exam Narrative Exam Narrative: alert and oriented 50 you male, in nad, sinus tachycardia, no murmur, no respiratory distress, ambulatory with steady gait Course Vital Signs Vital signs: Vital Signs Temperature 36.6 C 09/12/25 13:35 Pulse 110 H 09/12/25 13:35 Respiratory Rate 20 09/12/25 13:35 Blood Pressure 169/96 H 09/12/25 13:35 Pulse Oximetry 95 09/12/25 13:35 Temperature 36.6 C 09/12/25 13:35 Temperature Source Oral 09/12/25 13:35 Pulse 110 H 09/12/25 13:35 Respiratory Rate 20 09/12/25 13:35 Blood Pressure 169/96 H 09/12/25 13:35 Pulse Oximetry 95 09/12/25 13:35 Oxygen Delivery Method Room Air 09/12/25 13:35 Oxygen Flow Rate 0 09/12/25 13:35 Pain Level 0 09/12/25 13:35 Medical Decision Making results: mag 1.4, tsh 4.27, ft4wnl, remainder of labs wnl. ekg sinus tachycardia,. see attending's documentation , ddimer assessment and plan: pt with sinus tachycardia without evidence of dysrhythmia throughout brief observation In the emergency department. Patient is fully alert and oriented, his EKG shows sinus tachycardia which is why ordered D-dimer and electrolytes. Magnesium was found to be 1.4, QTc within normal limits. Patient adamantly declines repeat magnesium and is requesting to leave as he has a long-term home. I did recommend continued observation. Patient is swelling along the center of the lower ribs without overlying laceration. He has ecchymosis of the left with no instability or tenderness to the mid face. No septal hematoma, injury C-spine tenderness step-offs patient is the right arm is preserved but feels different compared to the left arm, largely over the area of the upper arm. But this does worsen her dizziness. This is a 73-year-old female patient presenting for evaluation of a face/head injury. Differential clues but is not limited to intracranial hemorrhage, skull fracture, facial bone fracture. Patient's new numbness/sensory change of the right upper extremity was increased my concern for nerve impingement, spine fracture, and certainly consider intracranial abnormality including mass effect. I considered medical etiologies of her dizziness including vasovagal, orthostasis, arrhythmia, metabolic electrolyte derangement, anemia. She has no chest pain to suggest ACS. pt encouraged to establish with pcp in [place] (offered local pcp however he resides in this location). he will need follow-up on TSH and holter monitor/zio patch. po magnesium was supplemented in the ED and pt will increase oral magnesium dosing at home and have magnesium rechecked by oncologist next week. We will obtain a CT of the head, neck, and facial bones. I will obtain an EKG and labs to include CBC, CMP, magnesium, and INR. I will provide additional Tylenol for additional management of her headache. PFSH All Active Problems (Updated 09/12/25 @ 15:45 by HALIMA Oglesby) Tachycardia (Acute) Hypomagnesemia (Acute) Social History Smoking/Tobacco Use Status: Former Tobacco Use Smoking risk assessment performed?: Yes Alcohol Intake: current Alcohol Intake frequency: 0-2 drinks per day Drug use: Daily Substance use type: marijuana Do you feel safe at home: Yes Do you feel safe in your relationship?: Yes
[2025-09-12 14:44] LABS: Abs Immature Grans 0.06 10^3/uL (0.0-0.06); HCT 39.5 % (40.0-50.0); HGB 13.3 g/dL (13.5-17.5); Immature Grans % 0.6 %; MCH 28.5 pg (27.0-33.0); MCHC 33.7 % (32.0-36.0); MCV 85 fL (80-95); MPV 8.4 fL (8.0-11.0); Platelet Count 404 10^3/uL (130-400); RBC 4.66 10^6/uL (4.36-5.78); RDW 12.5 % (11.8-14.1); RDW-SD 37.7 fL; WBC 9.72 10^3/uL (4.4-10.8)
[2025-09-12 15:27] LABS: D-Dimer 457 ng/mlFEU (<500)
[2025-09-12 15:27] LABS: ALT 11 U/L (16-63); AST 10 U/L (15-37); Albumin 3.2 g/dL (3.4-5.0); Alkaline Phosphatase 92 U/L (46-116); Anion Gap 9.1 mmol/L (3-11); BUN 8 mg/dL (7-18); Bilirubin, Total 0.4 mg/dL (0.2-1.0); CO2 29.9 mmol/L (21.0-32.0); Calcium 9.1 mg/dL (8.5-10.1); Chloride 93 mmol/L (98-107); Glucose 105 mg/dL (74-106); Magnesium 1.4 mg/dL (1.8-2.4); Potassium 3.6 mmol/L (3.5-5.1); Sodium 132 mmol/L (136-145); TSH (W/Ref FT4) 4.27 uIU/mL (0.36-3.74); Total Protein 7.4 g/dL (6.4-8.2)
[2025-09-12 15:50] VITALS: BP 157/108; PULSE 96; RESP 18; O2SAT 98
[2025-09-12 15:51] VITALS: BP 174/91; PULSE 96; RESP 18; O2SAT 97
[2025-09-12] MEDS: Heparin 500 UNITS/5 ML SYRINGE (16:00)
[2025-09-12] MEDS: Magnesium Oxide 400 MG TAB 800 MG PO (16:00)
== END 2025-09-12 17:03 | disposition home or self-care (01) ==
LOC: ER 17:09
PROVIDERS: Emergency Provider Physician Assistant
DX: E83.42 Hypomagnesemia (principal); R00.0 Tachycardia, unspecified
CPT/HCPCS: 99283; 99284; 80053; 93005; 83735; 84439; 84443; 85025; 85379; 93010; J1642